=== PATIENT | male | born 1960 | race Caucasian/White ===

== ENCOUNTER → 2017-07-05 | Outpatient (CLI) | payer OTHER ==
[~2017-07-05] MED LIST: ASPEC81 PO; LEVO125T5 PO; LISI2.5T5 PO; METO25TA56 PO; NTRSLP4 SL; PLV75 PO
[2017-07-05 12:37] LABS: BASO % 0.5 %; BASO ABS # 0.03 K/uL (0-0.2); EOS % 3.2 %; EOS ABS # 0.19 K/uL (0-0.5); HEMATOCRIT 44.1 % (42-52); IG# 0.01 K/uL (0.00-0.02); LYMPH % 24.5 %; LYMPH ABS # 1.45 K/uL (1.2-3.4); MEAN CELL VOLUME 92.8 fL (80-100); MEAN CORPUSCULAR HEMOGLOBIN 31.6 pg (25-34); MEAN PLATELET VOLUME 12.1 fL (7.4-10.4); MONO % 8.1 %; MONO ABS # 0.48 K/uL (0.11-0.59); NEUT % 63.5 %; NEUT ABS # 3.75 K/uL (1.4-6.5); PLATELET COUNT 212 K/uL (130-400); RED CELL DISTRIBUTION WIDTH CV 12.9 % (11.5-14.5); RED CELL DISTRIBUTION WIDTH SD 43.7 fL (36.4-46.3); WHITE BLOOD COUNT 5.91 K/uL (4.8-10.8)
[2017-07-05 12:55] LABS: HEMOGLOBIN A1C 5.5 % (4.5-5.6)
[2017-07-05 12:58] LABS: ALT/SGPT 27 U/L (12-78); BLOOD UREA NITROGEN 16 mg/dl (7-18); CALCIUM 8.7 mg/dl (8.5-10.1); CARBON DIOXIDE 25 mmol/L (21-32); CHOLESTEROL 155 mg/dl (0-200); CREATININE 1.08 mg/dl (0.60-1.40); GLUCOSE 93 mg/dl (70-99); POTASSIUM 4.3 mmol/L (3.5-5.1); SODIUM 139 mmol/L (136-145)
[2017-07-05 13:09] LABS: ALKALINE PHOSPHATASE 62 U/L (45-117); AST/SGOT 15 U/L (15-37); LDL CHOLESTEROL CALCULATED 82 mg/dl; TOTAL PROTEIN 7.2 gm/dl (6.4-8.2)
== END | disposition home or self-care (01) ==
LOC: C.LABPVFM 08:15
PROVIDERS: ATTEND Internal Medicine
DX: Z00.00 Encounter for general adult medical examination without abnormal findings (principal); E03.9 Hypothyroidism, unspecified; R73.01 Impaired fasting glucose; E78.5 Hyperlipidemia, unspecified; I48.0 Paroxysmal atrial fibrillation; I25.10 Atherosclerotic heart disease of native coronary artery without angina pectoris; Z12.5 Encounter for screening for malignant neoplasm of prostate

== ENCOUNTER 2023-08-02 05:05 | Observation (INO) ==
--- NOTE | 2023-07-12 09:20 | PAT Medication Instructions ---
Medication Instructions Date of Service July 12, 2023 Home Medications Medication Instructions Recorded nitroglycerin 0.4 mg sublingual 0.4 mg sublingual Q5M PRN chest 11/17/21 tablet pain #25 tabs aspirin 81 mg tablet 81 mg PO QAM nitroglycerin 0.4 mg sublingual tablet 0.4 mg sublingual Q5M PRN [place] 1 dose PO BID Cardio Plus 1 dose PO BID Cataplex B 1 dose PO BID Chromium Complex 1 dose PO BID Diaplex 1 dose PO BID Garuda Plus 1 dose PO BID Tuna [place] 1 dose PO BID cyanocobalamin (vitamin B-12) 1 tab PO QAM hawthorn 500 mg capsule 500 mg PO QAM levothyroxine 150 mcg tablet 150 mcg PO QAM vitamin D3 1,250 mcg (50,000 unit)-vitamin K2 200 mcg capsule 1 cap PO QAM Continue as directed nitroglycerin 0.4 mg sublingual tablet 0.4 mg sublingual Q5M PRN(if needed) ASK your prescriber and surgeon aspirin 81 mg tablet 81 mg PO QAM STOP taking 2 weeks before surgery (or as soon as possible if surgery is within 2 weeks) [place]well[place] 1 dose PO BID Cardio Plus 1 dose PO BID Cataplex B 1 dose PO BID Chromium Complex 1 dose PO BID Diaplex 1 dose PO BID Garuda Plus 1 dose PO BID Tuna [place] 1 dose PO BID hawthorn 500 mg capsule 500 mg PO QAM vitamin D3 1,250 mcg (50,000 unit)-vitamin K2 200 mcg capsule 1 cap PO QAM DO NOT take the morning of surgery cyanocobalamin (vitamin B-12) 1 tab PO QAM Take morning of surgery With a small sip of water, OTHERWISE NOTHING TO EAT OR DRINK AFTER MIDNIGHT: levothyroxine 150 mcg tablet 150 mcg PO QAM Other Notes If you have any questions please call us at [phone] or [phone] or [phone] or [phone]
--- NOTE | 2023-07-17 11:33 | Anesthesiology Consultation ---
Date of Service July 17, 2023 Assessment & Plan (1) Encounter for pre-operative examination: Chart Review Chart Review: Acceptable Risk for Surgery (pending PCP and cardio clearances ) and Patient seen in Pre Admission Testing - Awaiting PCP clearance 07/18/23 ([place]) - Awaiting routine cardiology appt 07/31/23 ([place]) - Patient is NOT an ideal OPJ candidate (currently 23 obs) Per PAT appt on 07/17/23, no recent illness/disease exposures, illness related symptoms, or recent illness/disease positive tests. Will leave to surgeon's discretion if preop Covid testing needed Last seen by cardio 03/10/23= CAD- s/p RCA PCI. Continue current meds. Declines statin due to concern regarding possible long-term adverse effects. Also declines beta-alexandra. Dyslipidemiadenies statins. Not interested in other medications. Continue diet and exercise. HypertensionBP is mildly elevated in office today. Patient declines medication adjustments but will try low-sodium diet. "Preop: He may potentially be undergoing hip replacement in the near future. He is at an acceptable risk for surgery from cardiac standpoint. Recommend he remain on low dose aspirin therapy throughout the perioperative period." Teaching & Discussion Pre-Anesthesia Teaching/Discussion Notes: Instructed NPO after midnight before surgery,except medications with 15 cc of water. Medication instructions provided according to the PAT guidelines. History Surgery Operation Date: 08/02/23 09:20 Proposed Procedures p Left Total Hip Arthroplasty - Non Cemented - Anjel Fairbanks MD Height/Weight Height: 5 ft 5 in Weight: 75 kg Allergies Allergy/AdvReac Type Severity Reaction Status Date / Time No Known Drug Allergies Allergy Verified 07/11/23 16:07 Medications Home Medications Medication Instructions Recorded Confirmed Last Taken aspirin 81 mg tablet 81 mg PO QAM 12/25/18 07/11/23 Unknown nitroglycerin 0.4 mg sublingual 0.4 mg sublingual Q5M PRN chest 11/17/21 07/11/23 Unknown tablet pain #25 tabs [place] 1 dose PO BID 07/11/23 07/11/23 Unknown Cardio Plus 1 dose PO BID 07/11/23 07/11/23 Unknown Cataplex B 1 dose PO BID 07/11/23 07/11/23 Unknown Chromium Complex 1 dose PO BID 07/11/23 07/11/23 Unknown Diaplex 1 dose PO BID 07/11/23 07/11/23 Unknown Garuda Plus 1 dose PO BID 07/11/23 07/11/23 Unknown Tuna [place] 1 dose PO BID 07/11/23 07/11/23 Unknown cyanocobalamin (vitamin B-12) 1 tab PO QAM 07/11/23 07/11/23 Unknown hawthorn 500 mg capsule 500 mg PO QAM 07/11/23 07/11/23 Unknown vitamin D3 1,250 mcg (50,000 1 cap PO QAM 07/11/23 07/11/23 Unknown unit)-vitamin K2 200 mcg capsule levothyroxine 150 mcg tablet See Rx Instructions .Route 07/17/23 Unknown .COMPLEX #90 tabs Past Medical History Medical History CAD (coronary artery disease) s/p RCA PCI (2015 ) following with [facility]. Dyslipidemia declines meds per cardio records History of atrial fibrillation per record, 2016 during/post cardiac cath. s/p cardioversion. no recurrence History of myocardial infarction 2016 Hypertension Hypothyroidism Impaired fasting glucose Osteoarthritis Exercise / Class Metabolic Activity II 4-5 Yardwork/Stairs/Walk up hill (one flight of stairs- no chest pain or SOB ) Past Family History Family History Father Coronary heart disease Mother Peripheral vascular disease smoking Other No family history of adverse response to anesthesia Denies family history of Ovarian cancer Prostate cancer Myocardial infarction Breast cancer Colorectal cancer Past Surgical History Surgical History H/O heart artery stent x1 (2016) History of cardiac catheterization 2016 - stent x 1 History of cardioversion History of colonoscopy Hx of LASIK Past Anesthesia History No Hx of Anesthesia Complications and No Family Hx of Anesthesia Complications History of PONV No Hx of PONV and No Hx of Motion Sickness Social History Smoking Status: Never smoker Do You Dip or Chew Tobacco: No Hx Alcohol Use: Yes Alcohol type: beer and wine alcohol intake frequency: 0-2 drinks per day (1 glass/day) Hx Substance Use: No substance use type: does not use Review of Systems - Dry cough x months - mild. No known allergies or post nasal drip. No other symptoms- feels well otherwise. Patient denies chest pain, shortness of breath, dyspnea on exertion, reflux, wheezing, palpitations. No hx of seizures, stroke, apnea/snoring. No hx of blood clots or blood transfusions Physical Exam Vital Signs VITALS BP 127/79 P 60 TEMP 98.3 SP02 98% RESP 16 Constitutional no acute distress ENMT Mouth: + small oral opening; no TMJ clicking Thyromental Distance: > or= 3.5 Finger Breadths (3.5) Mallampati Class: IV Missing molars Loiza to side teeth Neck + limited neck extension (mild) Respiratory normal respiratory effort; no respiratory distress Auscultation: lungs clear to auscultation bilaterally; no wheezes Cardiovascular Rate/Rhythm: regular rate and regular rhythm Heart Sounds: no murmur Vessels: no carotid bruit Musculoskeletal Spine: no pain with cervical ROM Extremities: extremities normal to inspection Psychiatric Orientation: alert Lab Results Anesthesia Preop Results Results Anesthesia Widget: WBC 6.07 K/ul (4.8-10.8) 07/17/23 Hgb 15.5 g/dl (14.0-18.0) 07/17/23 Hct 43.9 % (42.0-52.0) 07/17/23 Plt 213 K/uL (130-400) 07/17/23 Na 137 mmol/L (136-145) 07/17/23 K 4.2 mmol/L (3.5-5.1) 07/17/23 Cl 103 mmol/L (98-107) 07/17/23 CO2 25 mmol/L (21-32) 07/17/23 BUN 15 mg/dl (6-23) 07/17/23 Creat 1.07 mg/dl (0.6-1.4) 07/17/23 Glucose Level 97 mg/dl (70-99(Fasting)) 07/17/23 PT 10.9 Seconds (9.0-12.0) 07/17/23 PTT 30 Seconds (21-31) 07/17/23 INR 1.0 (0.9-1.1) 07/17/23 TSH 4.322 uIu/ml (0.300-4.500) 05/31/23 HA1c 5.7 % (4.5-5.6) H 07/17/23 Urine Color Dark Yellow 07/17/23 Urine Appearance Clear (Clear) 07/17/23 Urine pH 6.5 (4.5-7.5) 07/17/23 Urine Specific [place] 1.016 (1.000-1.030) 07/17/23 Urine Protein Negative (Negative) 07/17/23 Urine Glucose (UA) Negative (Negative) 07/17/23 Urine Ketones Negative (Negative) 07/17/23 Urine Blood Negative (Negative) 07/17/23 Urine Nitrite Negative (Negative) 07/17/23 Urine Bilirubin Negative (Negative) 07/17/23 Urine Urobilinogen Negative (Negative) 07/17/23 Urine Leukocyte Esterase Negative (Negative) 07/17/23 Blood Type B Positive 07/17/23 Antibody Screen NEGATIVE 07/17/23 Testing Electrocardiogram Date: 07/17/23 Findings: + NSR @ (61 bpm) Incomplete right bundle branch block When compared EKG from March 31, 2016PACs are no longer present, nonspecific T wave abnormality has replaced inverted T waves in inferior leads per cardio Chest X-Ray Date: 07/17/23 Findings: + NAD
[2023-08-02] MEDS: LR 500ML BOLUS, THEN 15ML/HR IV SCH (05:50)
[2023-08-02] MEDS: LR 60ML/HR IV SCH (05:50)
[2023-08-02] MEDS ORDERED: ROPIVACAINE 0.5% 5 MG/ML 30 ML VIAL ONE (06:14)
--- NOTE | 2023-08-02 06:30 | History & Physical Bridge Note ---
Date of Service August 02, 2023 History & Physical Bridge Note I have examined the patient, reviewed the History & Physical and in the interval since the performance of the History & Physical I have noted the following changes of clinical significance:consent verified,no new questions,site verified. no changes noted
[2023-08-02] MEDS ORDERED: fentaNYL citrate PF 100 MCG/2 ML VIAL ONE (06:37)
[2023-08-02] MEDS ORDERED: MIDAZOLAM HCL 1 MG/ML 2ML VIAL ONE (06:37)
[2023-08-02] MEDS: TRANEXAMIC ACID 1,000 MG **IV Pre-op IV SCH (06:41)
[2023-08-02] MEDS ORDERED: LIDOCAINE 2% 2 ML VIAL/AMP(20MG/ML) INFIL ONE ×2 (06:44→06:45)
[2023-08-02] MEDS ORDERED: PROPOFOL IV EMULSION 10 MG/ML 20 ML VIAL IV ONE (06:44)
[2023-08-02] MEDS ORDERED: HYDROmorphone INJ 1 MG/ML SYRINGE IV PRN (06:55)
[2023-08-02] MEDS ORDERED: fentaNYL citrate PF 100 MCG/2 ML VIAL IV PRN (06:55)
[2023-08-02] MEDS ORDERED: ePHEDrine sulfate 50 MG/ML AMP IV PRN (06:55)
[2023-08-02] MEDS ORDERED: ONDANSETRON INJ 2 MG/ML 2 ML VIAL IV PRN ×2 (06:55→09:33)
[2023-08-02] MEDS ORDERED: ATROPINE SULFATE 0.1 MG/ML 10ML SYR IV PRN (06:55)
[2023-08-02] MEDS: ceFAZolin 2000MG 2,000 MG/15 ML SYR IV SCH ×2 (06:56→15:46)
[2023-08-02] MEDS: ROPIVACAINE 0.5% HCL/PF 246 MG, Ketorolac (*for OR use only*) 30 MG, EPINEPHrine 30MG/3... INFIL SCH (07:24)
[2023-08-02] MEDS: TRANEXAMIC ACID 1,000 MG **IV Intra-op IV SCH (08:00)
[2023-08-02] MEDS ORDERED: PROPOFOL IV EMULSION 10 MG/ML 100 ML VIAL IV ONE (08:02)
[2023-08-02] MEDS ORDERED: PHENYLEPHRINE HCL 10 MG/ML VIAL ONE (08:03)
[2023-08-02] MEDS ORDERED: ONDANSETRON INJ 2 MG/ML 2 ML VIAL ONE (08:03)
[2023-08-02] MEDS ORDERED: ePHEDrine sulfate 50 MG/5 ML SYR ONE (08:03)
--- NOTE | 2023-08-02 08:19 | Post Operative Brief Note ---
Immediate Post Op Note v1 Date of Surgery August 02, 2023 Pre & Post Diagnosis Operation Date: 08/02/23 07:00 <No data on this case meets the specified criteria> Severe osteoarthritis left hip pre and postop diagnosis same I identified the patient and participated in the time-out.: Yes Procedure Operation Date: 08/02/23 07:00 <No data on this case meets the specified criteria> Noncemented left total hip replacement Surgeon Anjel Fairbanks MD [facility] no resident or fellow available Estimated Blood Loss 125 Findings Consistent with Post-Op Diagnosis Severe osteoarthritis with deformity of the femoral head Fluids See anesthesia report Complications None
--- NOTE | 2023-08-02 08:23 | Operative Report ---
Post Operative Report Pre & Post Diagnosis Operation Date: 08/02/23 07:00 <No data on this case meets the specified criteria> Severe osteoarthritis with marked deformity femoral head and acetabulum left hip I identified the patient and participated in the time-out.: Yes Procedure Operation Date: 08/02/23 07:00 <No data on this case meets the specified criteria> Noncemented left total replacement Surgeon Anjel Fairbanks MD Evp And Chief Operating Officer Cherri no resident or fellow available Estimated Blood Loss 125 Findings Consistent with Post-Op Diagnosis Severe osteoarthritis marked deformity Fluids See anesthesia report Specimens Bone pathology Drains None Complications None Indications Severe pain marked x-ray changes Description of Procedure After the patient was appropriate notified site verified consent verified antibiotics confirmed as being given the left lower extremity was prepped and draped use routine fashion with the patient in the right lateral decubitus position appropriate padding was applied. Posterior approach the left hip was then made. Sharp dissection carried through skin blunt dissection down to fascia just this was then incised under direct vision. Propria retractor placed and care taken to protect the sciatic nerve. Blunt dissection was then carried out around the external rotators they were then identified and released appropriately and used to help protect the sciatic nerve. The capsule was then released and preserved. Hip was dislocated there was marked deformity to the head. The head was appropriately resected. Excellent acetabular exposure was achieved. Pulvinar of the acetabulum was then resected. Serial reaming was then carried up to a 52 and a 52 cup impacted into appropriate inclination and anteversion. It was then secured with additional 6.5 x 25 screw excellent purchase. Trial liner was then seated osteophytes resected. Femur was then flexed internally rotated proximal femur. With a box packer canal finder lateralizing rasp and serial broaching up to a size 2 standard. Trial reduction was carried out a +5 noted to make the leg lengths exact. The hip was then dislocated all remaining trial elements were removed the wound was irrigated with Betadine and Pulsavac the whole limb later seated the permanent liner seated the permanent head and stem seated hip reduced it was stable in all planes leg lengths were excellent. Wound was irrigated 1 final time with Pulsavac and Betadine and then closed with the capsule closed with #2 Vicryl short external rotators with #2 Vicryl the IT band and gluteus bre fascia with #2 Vicryl the subcutaneous layer with 2-0 Vicryl and the skin with standstill clips appropriate dressing applied the patient transferred recovery in satisfactory He tolerated the procedure well. Summary of implants size 52 acetabular shell sector cup 25 x 6.5 screw 36 x 52 neutral liner 2 standard Actis stem 36+5 ceramic head all [employer] implants. EBL was 125 cc or less crystalloid per anesthesia DVT prophylaxis to begin tomorrow with protocol. Family contacted. I attest to the content of the Intraoperative Record and any orders documented therein. Any exceptions are noted below.
--- NOTE | 2023-08-02 08:27 | Discharge Summary ---
Date of Service August 03, 2023 Admission HPI Per Admitting Provider Advanced osteoarthritis of the left hip. Principal Diagnosis Left hip osteoarthritis with severe deformity. Discharge Data Allergies Allergy/AdvReac Type Severity Reaction Status Date / Time No Known Drug Allergies Allergy Verified 08/02/23 05:32 Vaccinations None Consultations None Procedures Performed Operation Date: 08/02/23 07:00 Actual Procedures p Left Total Hip Arthroplasty - Non Cemented(Left) - Anjel Fairbanks MD Hospital Course (1) Status post left hip replacement: Continue care pathway Total Time Total Time Spent Total Time Spent (In Minutes): 5 minutes Discharge Plan Discharge Items Patient Disposition: Home - Home Health Services Reason For Visit: Degenerative Joint Disease Left Hip Discharge Diagnosis: Left hip s/p total hip replacement Condition on Discharge: Good Activity: Per Instructions section Lifting: Wait until after follow-up appointment Bathing: Keep incision dry Sexual Activity: Wait until after follow-up appointment Exercise/Sports: Wait until after follow-up appointment Driving/Machine Use: No driving until cleared by Dr. Fairbanks Weightbearing: Full weightbearing Call non-emergency contact if: you have any medication questions, your pain is not controlled, your temperature is above 101.5, your wound has increased redness, your wound has increased drainage and your wound pain has increased Follow-up/Referrals: PCP,NO [Physician] - Diet: Heart Healthy Addtl Attending Provider Instructions: New Medicine: * You will likely be taking one or more of these medicines: 1. Percocet - Take, as directed, when you need it, every four to six hours to control your pain. 2. Iron Sulfate - Take 1x each day for the month after surgery to help you replace the blood lost during surgery. 3. Eliquis - Thins your blood to lessen the chance of forming a blood clot. The dose of this is different for each person and is based on your blood tests that are done twice a week. * The most common side effects of pain medicine and iron are nausea and constipation. If nausea or constipation is too much of a problem or if you have any questions about your new medicines or doses, call [facility] at . We will try to help you manage these issues. "VERY IMPORTANT TO READ AND REVIEW" Blood Clots and Blood Thinning Medicine: * You are given Eliquis during the immediate post-operative period to lessen the risk of blood clots forming in your legs and/or lungs. It is usually given for 4 weeks after surgery. Pain: * The immediate post-operative period after hip replacement surgery is often quite painful. * You are given a prescription for pain medicine. You should take it, as directed, when you need it, especially before physical therapy and before going to bed. Pain that interferes with sleep is very common and can last several months. * You will likely need pain medicine for the first two to four weeks. It will not stop all of the pain. The pain will lessen and as you feel better, you may change to milder pain medicine such as Tylenol. * The most common side effects of pain medicine are nausea and constipation, so don't take more than you need. Physical Therapy: * Follow the "Hip Precautions Instructions." * In some cases, the older adult social work specialist at the hospital will arrange to have a therapist come to your house for the first couple of weeks to help you learn these skills. * You need to practice on your own or with the help of a family member as needed. * When you learn these skills, most of the therapy can be done on your own. Home Exercise: * You were shown a series of exercises in the hospital. Do these exercises three to four times each day including the exercises you were shown in physical therapy. Walking: * Get up and walk several times each day. For the first four weeks, try not to stand or walk for more than one hour at a time. If you do stand or walk for more than one hour, you will not hurt anything, but your leg will likely swell. * As you feel comfortable, you may change from the walker or crutches to a cane and then to independent walking. SELF CARE INSTRUCTIONS AFTER TOTAL HIP REPLACEMENT Until the incision and soft tissues around your hip have healed, there is a possibility that the hip prosthesis could dislocate. A. Observe the following precautions to prevent dislocation: 1. Don't bend your hip greater than 90 degrees. 2. Avoid crossing your legs or ankles while standing or lying. 3. Sit with your feet placed 6 inches apart. 4. When sitting, keep your knees below your hips. Sit on a firm surface, avoid deep, soft chairs and couches. Use an elevated toilet seat in the bathroom. 5. Don't bend over at the waist. Use a long handled shoehorn and a sock aid to help you put on your shoes and socks. A scouring train operator can help you machine pecan picker objects that are too high or too low to reach. 6. Keep car riding to a minimum for at least one month after surgery. B. Your balance may be shaky for a while. Use crutches or a walker until directed by your doctor. C. Use hand rails when walking on stairs. D. Wear low heeled shoes with non-slip soles. E. Be sure that your floors are free of things that could trip you - throw rugs, electrical cords, small objects. Avoid wet and waxed floors, especially with crutches and canes. F. Try to walk several times a day with rest periods between. G. Continue with all the exercises taught to you in the hospital. Again, make walking a part of your daily routine. VERY IMPORTANT TO READ AND REVIEW A. Take Eliquis (blood thinning medication) as directed by your doctor. B. There are a few signs you need to watch for after you are home. If you notice any of the followin. Increased severe hip pain. Some pain is expected especially when you exercise. 2. Increased swelling in your leg or knee; pain or swelling of the calf muscle in either lower leg. 3. Any fluid drainage from the incision. 4. Shortness of breath or chest pain. TEDs/Elastic Stockings: * The white elastic stockings help limit swelling and prevent blood clots from forming in your legs. The more you wear them, the more they work. * Wear them for six weeks. Prevention of Infection: * Take antibiotics one hour before any dental cleaning, dental work, urological procedure, gastrointestinal procedure or any invasive surgery in order to prevent your new joint from getting infected. * You may get the antibiotics from the doctor performing the procedure or we will call in a prescription to the pharmacy of your choice. Call the office for a prescription at least 2 days prior to your appointment. Things to Watch For: * Drainage from the incision site that occurs more than one week after your surgery. * Severely increased leg pain or swelling. * Increased redness at the incision site. * Fever above 101 degrees Fahrenheit. * Unusual chest pain or shortness of breath. * Unusual pain or burning with urination. Use your walker for ambulation. Leave the dressings in place over the weekend. They may be changed by home health on Monday as needed for soiling Ice the hip frequently to reduce pain/swelling Start your Eliquis evening. Take it 2x daily x 4 weeks follow up in the office on 08/16 with Zhen as scheduled for staple removal Pending Studies at Discharge: Yes (Bone pathology) Studies:: bone pathology Stand-Alone Forms: My [facility], Smoking Cessation Medications and DC Order Prescriptions: No Action nitroglycerin 0.4 mg tablet, sublingual 0.4 mg SL Q5M PRN (Reason: chest pain) Qty: 25 3RF aspirin 81 mg tablet 81 mg PO QAM hawthorn 500 mg Capsule 500 mg PO QAM Vitamin B-12 Tablet,Chewable 1 tab PO QAM vitamin D3-vitamin K2 1,250-200 mcg Capsule 1 cap PO QAM [place] 1 dose PO BID Cardio Plus 1 dose PO BID Cataplex B 1 dose PO BID Chromium Complex 1 dose PO BID Diaplex 1 dose PO BID Garuda Plus 1 dose PO BID Tuna [place] 1 dose PO BID levothyroxine 150 mcg tablet 150 mcg PO DAILY Admission Data Admit Date/Time: 08/02/23 08:45 Attending Provider: Anjel Fairbanks Admit Provider: Anjel Fairbanks Primary Care Provider: Carole Gil Other Providers: Taya,Home Health
--- NOTE | 2023-08-02 08:28 | Orthopedic Progress Note ---
Date of Service August 02, 2023 Orthopedic Progress Note Underwent noncemented left total replacement. Denies any chest pain shortness of breath fever chills nausea vomiting or headache. Vital signs are stable he is afebrile. Wound dressing clean dry and intact leg lengths are excellent. X-ray pending. Assessment doing well status post left total replacement noncemented. Continue care pathway. has been contacted.
--- NOTE | 2023-08-02 08:38 | Operative Report ---
Post Operative Report Pre & Post Diagnosis Operation Date: 08/02/23 07:00 Pre-Op Diagnosis: Degenerative Joint Disease Left Hip Post-Op Diagnosis: Degenerative Joint Disease Left Hip I identified the patient and participated in the time-out.: Yes Procedure Operation Date: 08/02/23 07:00 Actual Procedures p Left Total Hip Arthroplasty - Non Cemented(Left) - Anjel Fairbanks MD Surgeon SONJA Fairbanks MD Business Excellence Manager Cherri [place] no resident or fellow available Estimated Blood Loss 125 Findings Consistent with Post-Op Diagnosis see operative report Specimens see operative report Drains none Complications none Disposition Accompanied Patient To Recovery: Yes Indications This 62 year old male presented to the office with complaints of persisting left hip pain. He had tried conservative care measures with mild improvement. He elected to proceed with surgical intervention after being educated about potential risks and outcomes. Preoperative imaging was obtained. Description of Procedure The patient was administered a spinal anesthetic and then taken to the operating room where he was given sedation. He was prepped and draped in the usual sterile fashion. Please see Dr. Fairbanks's operative report for specifics of the procedure. I was present for the entire case from initial patient positioning through final wound closure. Assistance was provided in tissue retraction, hemostasis, trial implant placement, final implant placement, and final wound closure. The patient was taken to the recovery room in satisfactory condition. I attest to the content of the Intraoperative Record and any orders documented therein. Any exceptions are noted below.
--- NOTE | 2023-08-02 09:29 | XRay Report ---
XR pelvis 1-2V routine CLINICAL HISTORY: S/P L MAEGAN COMPARISON: Pelvis and left hip radiographs March 27, 2023. FINDINGS: Alignment of the total left hip arthroplasty is anatomic. There is no periprosthetic fract ure or unexpected radiopaque foreign body. Skin renaldo are noted. Right hip osteoarthritis is again noted. IMPRESSION: Expected findings following total left hip arthroplasty. ACT 112: Negative or not required by law. Electronically signed by: Temo Martinez M.D. 08/02/2023 9:28 AM
[2023-08-02] MEDS ORDERED: bisacodyL 10 MG SUPP PR PRN (09:33)
[2023-08-02] MEDS ORDERED: diphenhydrAMINE 50 MG/ML VIAL IV PRN (09:33)
[2023-08-02] MEDS: ORTHO JOINT ANESTHETIC ONE (09:33)
[2023-08-02] MEDS ORDERED: NALOXONE HCL 0.4 MG/1 ML VIAL/CARP IV PRN (09:33)
[2023-08-02] MEDS ORDERED: TAMSULOSIN HCL 0.4 MG CAP PO PRN (09:33)
[2023-08-02] MEDS ORDERED: METOCLOPRAMIDE HCL INJ 5 MG/ML 2 ML VIAL IV PRN (09:33)
[2023-08-02] MEDS ORDERED: ALUMINUM/MAGNESIUM SUSP 30 ML UDC PO PRN (09:33)
[2023-08-02] MEDS ORDERED: HYDROmorphone INJ 0.5 MG/0.5 ML SYR IV PRN (09:33)
[2023-08-02] MEDS ORDERED: NITROGLYCERIN SL 0.4 MG/TAB TAB SL PRN (09:33)
[2023-08-02] MEDS ORDERED: MAGNESIUM HYDROXIDE SUSP 30 ML UDC PO PRN (09:33)
--- NOTE | 2023-08-02 09:47 | Anesthesiology Progress Note ---
Date of Service August 02, 2023 Anesthesia Post Procedure Vital Signs Vital Signs: Temp Pulse Pulse Resp BP Pulse Ox O2 Del Method 08/02/23 09:38 36.4 C L 63 16 118/72 100 Room Air 08/02/23 09:20 67 13 101/57 L 96 Room Air 08/02/23 09:10 36.2 C L 70 16 112/64 98 Room Air 08/02/23 09:00 69 18 106/62 98 Room Air 08/02/23 08:50 80 18 110/63 96 Room Air 08/02/23 08:40 79 18 104/70 97 Room Air 08/02/23 08:31 36.1 C L 86 12 111/65 98 Room Air Pain Intensity Left Hip: Pain Intensity: 2 Transfer of Care Handoff Completed per policy Notes Mental Status: alert / awake / arousable and participated in evaluation Patient Amnestic to Procedure: Yes Nausea / Vomiting: adequately controlled Pain: adequately controlled Airway Patency, RR, SpO2: stable & adequate BP & HR: stable & adequate Hydration State: stable & adequate Neuraxial Anesthesia: was administered and sensory block is resolving Anesthetic Complications: no major complications apparent and Pt Satisfied with anesthetic care
[2023-08-02] MEDS: SODIUM CHLORIDE 0.9% 1,000 ML IV SCH (09:59)
[2023-08-02] MEDS: DOCUSATE SODIUM 100 MG CAP PO SCH (11:23)
[2023-08-02] MEDS: MULTIVITAMIN TAB PO SCH (11:23)
[2023-08-02] MEDS: KETOROLAC TROMETHAMINE 15 MG/ML VIAL IV SCH (11:24)
[2023-08-02] MEDS: ASPIRIN 81 MG ECTAB PO SCH (12:06)
[2023-08-02] MEDS: ACETAMINOPHEN 500 MG TAB PO SCH (13:37)
--- NOTE | 2023-08-02 14:17 | Orthopedic Progress Note ---
Date of Service August 02, 2023 Assessment & Plan Admission and Anticipated Discharge Date Admission Date: August 02, 2023 Orthopedic Progress Note Postop check p.m. He is doing well he said breakfast and lunch. He denies any nausea vomiting chest pain shortness of breath fever chills. Vital signs are stable he is afebrile. Neurovascular check femoral sciatic nerve is normal. Can do a straight leg raise can do heel slides. Has good ankle dorsi and plantarflexion. Wound dressing clean dry and intact. Postop x-rays look excellent. Assessment doing well status post left total hip replacement. At this point in time he is eating well enough to Hep-Lock/saline lock his IV. Encourage him to get out of bed weightbearing as tolerated left leg with walker. Begin his bed exercises. Prepare for discharge tomorrow.
--- NOTE | 2023-08-02 14:18 | Orthopedic Progress Note ---
Date of Service August 02, 2023 Assessment & Plan Admission and Anticipated Discharge Date Admission Date: August 02, 2023 Orthopedic Progress Note Duplicate note as the original 1 did not go through. Hopefully it is there now.
[2023-08-02] MEDS: ASCORBIC ACID 500 MG TAB PO SCH (16:48)
[2023-08-02] MEDS: FERROUS GLUCONATE 324 MG TAB PO SCH (16:48)
[2023-08-02] MEDS: SENNA 8.6 MG TAB PO SCH (19:52)
[2023-08-02] MEDS: oxyCODONE HCL IR 5 MG TAB (IMMEDIATE RELEASE) PO PRN (22:20)
[2023-08-03] MEDS: LEVOTHYROXINE SODIUM 150 MCG TABLET PO SCH (04:57)
[2023-08-03 06:27] LABS: BUN Creatinine Ratio 13.3 (10-20); Calcium 8.7 mg/dl (8.6-10.3); Creatinine Clr Calc Pharmacy 63.8 ml/min; Est GFR (African American) 80.3 ml/min; Est GFR (Non-African American) 69.3 ml/min; Potassium 3.9 mmol/L (3.5-5.1)
[2023-08-03 06:28] LABS: Basophils # (auto) 0.02 K/uL (0.00-0.20); Basophils % (auto) 0.2 %; Eosinophils # (auto) 0.11 K/uL (0.00-0.50); Eosinophils % (auto) 1.3 %; Hemoglobin 13.3 g/dl (14.0-18.0); Immature Granulocytes # (auto) 0.03 K/uL (0.01-0.20); Immature Granulocytes % (auto) 0.4 %; Lymphocytes # (auto) 1.31 K/uL (1.20-3.40); Lymphocytes % (auto) 15.3 %; Mean Corpuscular Hemoglobin 31.7 pg (25.0-34.0); Mean Corpuscular Volume 90.5 fL (80.0-100.0); Mean Platelet Volume 11.7 fL (9.4-12.4); Monocytes % (auto) 10.5 %; Neutrophils # (auto) 6.17 K/uL (1.40-6.50); Neutrophils % (auto) 72.3 %; Platelet Count 148 K/uL (130-400); RDW Coefficient of Variation 12.8 % (11.5-14.5); RDW Standard Deviation 42.2 fL (36.4-46.3); White Blood Count 8.54 K/ul (4.8-10.8)
--- NOTE | 2023-08-03 06:58 | Orthopedic Progress Note ---
Date of Service August 03, 2023 Assessment & Plan Admission and Anticipated Discharge Date Admission Date: August 02, 2023 Orthopedic Progress Note Postop day #1 status post left total hip replacement. He is resting comfortably. He denies chest pain shortness of breath fever chills nausea vomiting or headache. Vital signs are stable he is afebrile. Neurovascular check femoral sciatic nerve is normal. A.m. lab work this morning reveals a hematocrit of 38. Assessment doing well continue with care pathway PT OT and discharge today with dressing changed by PA later this morning. Begin anticoagulation this morning.
[2023-08-03] MEDS: dexAMETHasone 10 MG in SYRINGE 0 ML IV SCH (07:54)
[2023-08-03] MEDS: APIXABAN 2.5 MG TAB PO SCH (07:54)
--- NOTE | 2023-08-03 08:46 | Orthopedic Progress Note ---
Date of Service August 03, 2023 Assessment & Plan (1) Status post left hip replacement: Plan: The patient was educated regarding today's findings. His postsurgical dressing was changed today by me. It can be left in place through the weekend. It may be changed on Monday by home health if needed for soiling. Written discharge instructions were provided. Prescriptions for Percocet and Eliquis were sent to his pharmacy. Continue using the walker for ambulation. Follow-up in the office in 2 weeks as scheduled on August 16 with me for staple removal. Call the office with any other concerns. Admission and Anticipated Discharge Date Admission Date: August 02, 2023 Subjective This 62-year-old male is seen today in his room. He is postop day 1 from left total hip arthroplasty. He states he is doing fine. He did have some pain this morning and required a tablet of Percocet. He denies any chest pain, shortness of breath, nausea, vomiting, or abdominal pain. He is currently sitting in his bedside chair. He has finished his breakfast and is waiting for therapy. He feels ready to go home. No other complaints. Review of Systems Review of Systems: Unchanged from yesterday. Physical Exam Physical Exam: General: Well-developed, well-nourished, middle-aged male, in no acute distress. Sitting in his bedside chair. Alert and oriented. Skin: Warm and dry with good turgor. He has a postsurgical dressing in place on the left hip. Upon removal, there is scant drainage on the inner dressings. No active bleeding. He has a surgical incision on the left hip with renaldo in place. Wound edges are well-approximated. No active bleeding. No ecchymosis or edema yet. Musculoskeletal: The patient rises easily from his bedside chair. He stands easily with his walker. Supple motion of the left hip for flexion as well as rotation. Intact motor function of his knee, ankle, and toes. Neurologic: Gross sensation is intact across the lower extremities by soft touch. Results & Data Vital Signs (Past 12 Hours) Vital Signs Temp Pulse Resp BP Pulse Ox O2 Del Method 08/03/23 08:13 36.7 C 70 18 113/71 95 Room Air 08/03/23 03:44 36.8 C 71 18 103/63 98 Room Air 08/02/23 23:55 36.7 C 75 18 116/69 96 Room Air Laboratory Results CBC obtained this morning shows white count of 8.54. H&H of 13.3 and 38.0. Platelets normal at 148,000. Sodium today is 136. Potassium 3.9. Chloride 105. Anion gap of 6. BUN of 15 with creatinine 1.13. Glucose this morning was 121.
== END 2023-08-03 10:53 | disposition home health service (06) ==
LOC: ASU 05:05 → 3E 05:05